=== PATIENT | female | born 1975 | race Caucasian/White ===

== ENCOUNTER 2017-08-25 12:50 | Emergency (ER) | payer BC ==
[2017-08-25 13:57] LABS: CHLORIDE,CL 106 mmol/L (98-107); SODIUM,NA 139 mmol/L (136-145)
[2017-08-25] MEDS ORDERED: Ketorolac 60 MG/2 ML SDV IM ONE (14:07)
[2017-08-25] MEDS ORDERED: Ondansetron 4 MG Tab.DIS PO ONE (14:07)
--- NOTE | 2017-08-25 16:32 | EDM.PDOC ---
ED HPI GENERAL MEDICAL PROBLEM - General Chief Complaint: Abdominal Pain Stated Complaint: ABD PAIN Time Seen by Provider: 08/25/17 13:10 Source of Information: Reports: Patient History Limitations: Reports: No Limitations - History of Present Illness INITIAL COMMENTS - FREE TEXT/NARRATIVE: History of present illness: []Patient started having right upper quadrant abdominal pain yesterday that is spreading throughout her whole abdomen. Patient's having nausea no vomiting but copious watery diarrhea. Patient states she's currently on her period is unsure if there is any blood in her stool. Review of systems: As per history of present illness and below otherwise all systems reviewed and negative. Past medical history: As per history of present illness and as reviewed below otherwise noncontributory. Surgical history: As per history of present illness and as reviewed below otherwise noncontributory. Social history: No reported history of drug or alcohol abuse. Family history: As per history of present illness and as reviewed below otherwise noncontributory. Physical exam: General: Well developed, well nourished in NAD HEENT: Atraumatic, normocephalic, pupils reactive, negative for conjunctival pallor or scleral icterus, mucous membranes moist, throat clear, neck supple, nontender, trachea midline. Lungs: Clear to auscultation, breath sounds equal bilaterally, chest nontender. Heart: S1S2, regular, negative for clicks, rubs, or JVD. Abdomen: Soft, nondistended, nontender. Negative for masses or hepatosplenomegaly. Negative for costovertebral tenderness. Pelvis: Stable nontender. Genitourinary: Deferred. Rectal: Deferred. Extremities: Atraumatic, negative for cords or calf pain. Neurovascular unremarkable. Neuro: Awake, alert, oriented. Cranial nerves II through XII unremarkable. Cerebellum unremarkable. Motor and sensory unremarkable throughout. Exam nonfocal. Diagnostics: []CBC normal,, urine negative, lipase normal, urine and negative ultrasound abdomen negative for gallstones Therapeutics: []Toradol for pain with improvement Impression: []Acute gastroenteritis Plan: []Zofran for nausea increase fluids follow-up with primary care return if symptoms worsen or change Definitive disposition and diagnosis as appropriate pending reevaluation and review of above. Abdominal Pain Score (Numeric/FACES): 5 - Related Data Allergies Allergy/AdvReac Type Severity Reaction Status Date / Time No Known Allergies Allergy Verified 08/25/17 13:09 Home Meds: Home Meds Lisdexamfetamine [Vyvanse] 08/25/17 [History] Olmesartan [Benicar] 08/25/17 [History] Ondansetron HCl [Zofran] 4 mg PO Q4HR #12 tablet 08/25/17 [Rx] traZODone 08/25/17 [History] Past Medical History Cardiovascular History: Reports: Hypertension Psychiatric History: Reports: Anxiety, Other (See Below) Other Psychiatric History: sleep disorder - Infectious Disease History Infectious Disease History: Reports: Chicken Pox Social & Family History - Family History Family Medical History: Noncontributory - Tobacco Use Smoking Status *Q: Current Every Day Smoker Years of Tobacco use: 4 Packs/Tins Daily: 1 - Recreational Drug Use Recreational Drug Use: No ED ROS GENERAL - Review of Systems Review Of Systems: See Below (See history of present illness) ED EXAM, GI/ABD - Physical Exam Exam: See Below (See history of present illness) Course - Vital Signs Last Recorded V/S: Last Vital Signs Temp 98.0 F 08/25/17 13:04 Pulse 87 08/25/17 15:43 Resp 18 08/25/17 15:43 BP 134/82 08/25/17 15:43 Pulse Ox 96 08/25/17 15:43 - Orders/Labs/Meds Orders: Active Orders 24 hr Category Date Time Status UA W/MICROSCOPIC [URIN] Stat Lab 08/25/17 13:16 Ordered Labs: Laboratory Tests 08/25/17 08/25/17 08/25/17 Range/Units 13:16 13:24 13:24 WBC 6.64 (4.0-11.0) K/uL RBC 4.41 (4.30-5.90) M/uL Hgb 14.2 (12.0-16.0) g/dL Hct 42.3 (36.0-46.0) % MCV 95.9 (80.0-98.0) fL MCH 32.2 H (27.0-32.0) pg MCHC 33.6 (31.0-37.0) g/dL RDW Std Deviation 51.0 (28.0-62.0) fl RDW Coeff of Jered 14 (11.0-15.0) % Plt Count 181 (150-400) K/uL MPV 9.50 (7.40-12.00) fL Neut % (Auto) 71.7 (48.0-80.0) % Lymph % (Auto) 22.7 (16.0-40.0) % [place] % (Auto) 3.5 (0.0-15.0) % Eos % (Auto) 2.1 (0.0-7.0) % Baso % (Auto) 0.0 (0.0-1.5) % Neut # (Auto) 4.8 (1.4-5.7) K/uL Lymph # (Auto) 1.5 (0.6-2.4) K/uL [place] # (Auto) 0.2 (0.0-0.8) K/uL Eos # (Auto) 0.1 (0.0-0.7) K/uL Baso # (Auto) 0.0 (0.0-0.1) K/uL Nucleated RBC % 0.0 /100WBC Nucleated RBCs # 0 K/uL Sodium 139 (136-145) mmol/L Potassium 3.7 (3.5-5.1) mmol/L Chloride 106 (98-107) mmol/L Carbon Dioxide 26.2 (21.0-32.0) mmol/L BUN 10 (7.0-18.0) mg/dL Creatinine 0.9 (0.6-1.0) mg/dL Est Cr Clr Drug Dosing 73.27 mL/min Estimated GFR (MDRD) > 60.0 ml/min Glucose 98 (74-106) mg/dL Calcium 8.8 (8.5-10.1) mg/dL Total Bilirubin 0.2 (0.2-1.0) mg/dL AST 14 L (15-37) IU/L ALT 17 (14-63) IU/L Alkaline Phosphatase 57 (46-116) U/L Total Protein 6.9 (6.4-8.2) g/dL Albumin 3.6 (3.4-5.0) g/dL Globulin 3.3 (2.0-3.5) g/dL Albumin/Globulin Ratio 1.1 L (1.3-2.8) Lipase 105 (73-393) U/L Urine Color YELLOW Urine Appearance CLEAR Urine pH 6.0 (5.0-8.0) Ur Specific [place] 1.015 (1.001-1.035) Urine Protein NEGATIVE (NEGATIVE) mg/dL Urine Glucose (UA) NEGATIVE (NEGATIVE) mg/dL Urine Ketones NEGATIVE (NEGATIVE) mg/dL Urine Occult Blood SMALL H (NEGATIVE) Urine Nitrite NEGATIVE (NEGATIVE) Urine Bilirubin NEGATIVE (NEGATIVE) Urine Urobilinogen 0.2 (<2.0) EU/dL Ur Leukocyte Esterase NEGATIVE (NEGATIVE) Urine RBC 0-2 (0-2/HPF) Urine WBC 0-1 (0-5/HPF) Ur Epithelial Cells FEW (NONE-FEW) Amorphous Sediment LIGHT (NEGATIVE) Urine Bacteria FEW (NEGATIVE) Meds: Medications Discontinued Medications Generic Name Dose Route Start Last Admin Trade Name Freq PRN Reason Stop Dose Admin Ketorolac Tromethamine 60 mg 08/25/17 14:07 08/25/17 14:13 Toradol IM 08/25/17 14:08 60 mg ONETIME ONE Administration Ondansetron HCl 4 mg 08/25/17 14:07 08/25/17 14:13 Zofran Odt PO 08/25/17 14:08 4 mg ONETIME ONE Administration Departure - Departure Time of Disposition: 16:42 Disposition: Home, Self-Care 01 Condition: Good Clinical Impression: Acute gastroenteritis - Discharge Information Prescriptions: Ondansetron HCl [Zofran] 4 mg PO Q4HR #12 tablet Referrals: Kiley Weston [employer]ER [Primary Care Provider] - Forms: ED Department Discharge Additional Instructions: The following information is given to patients seen in the emergency department who are being discharged to home. This information is to outline your options for follow-up care. We provide all patients seen in our emergency department with a follow-up referral. The need for follow-up, as well as the timing and circumstances, are variable depending upon the specifics of your emergency department visit. If you don't have a primary care physician on staff, we will provide you with a referral. We always advise you to contact your personal physician following an emergency department visit to inform them of the circumstance of the visit and for follow-up with them and/or the need for any referrals to a consulting specialist. The emergency department will also refer you to a specialist when appropriate. This referral assures that you have the opportunity for follow-up care with a specialist. All of these measure are taken in an effort to provide you with optimal care, which includes your follow-up. Under all circumstances we always encourage you to contact your private physician who remains a resource for coordinating your care. When calling for follow-up care, please make the office aware that this follow-up is from your recent emergency room visit. If for any reason you are refused follow-up, please contact the [facility] Emergency Department at and asked to speak to the emergency department charge nurse. - My Orders Last 24 Hours: My Active Orders 08/25/17 13:16 UA W/MICROSCOPIC [URIN] Stat - Assessment/Plan Last 24 Hours: My Active Orders 08/25/17 13:16 UA W/MICROSCOPIC [URIN] Stat
--- NOTE | 2017-08-25 16:33 | US ---
EXAMINATION: Right upper quadrant ultrasound HISTORY: Pain COMPARISON: None TECHNIQUE: Grayscale and color Doppler imaging obtained of the vertebral quadrant. FINDINGS: The visualized pancreas appears normal. The liver is normal in contour and echotexture with out a focal hepatic mass. The gallbladder wall thickness is normal. No pericholecystic fluid or shado wing gallstones. Common bile duct measures 3 mm. The right kidney measures at least 10.7 cm pole-to-p ole without evidence of hydronephrosis. IMPRESSION: Unremarkable right upper quadrant ultrasound.
== END 2017-08-25 16:48 | disposition home or self-care (01) ==
LOC: MW.ED 12:50
DX: K52.9 Noninfective gastroenteritis and colitis, unspecified (principal); I10 Essential (primary) hypertension; F17.210 Nicotine dependence, cigarettes, uncomplicated
CPT/HCPCS: 36415; 76705; 80053; 81001; 83690; 85025; 96372; 99284; A9270; J1885; 99283

== ENCOUNTER 2017-12-09 14:46 | Emergency (ER) | payer BC ==
[2017-12-09] MEDS ORDERED: Sodium Chloride 0.9% 2.5 ML Syringe FLUSH PRN (15:03)
[2017-12-09] MEDS ORDERED: Nitroglycerin 0.4 MG Tab.SL SL PRN (15:03)
[2017-12-09] MEDS ORDERED: Aspirin 81 MG Tab.Chew PO ONE (15:03)
[2017-12-09] MEDS ORDERED: Sodium Chloride 0.9% 10 ML Syringe FLUSH PRN (15:03)
--- NOTE | 2017-12-09 15:37 | EDM.PDOC ---
ED HPI GENERAL MEDICAL PROBLEM - General Chief Complaint: Chest Pain Stated Complaint: HEART ISSUES Time Seen by Provider: 12/09/17 14:57 Source of Information: Reports: Patient History Limitations: Reports: No Limitations - History of Present Illness INITIAL COMMENTS - FREE TEXT/NARRATIVE: History of present illness: []Patient's had 2 month history of chest pain that has been more on than off. Last night at 19:30 she developed another episode of 8/10 right anterior upper chest pain radiating to her right arm at times. She states she has some shortness of breath associated with it but denies any diaphoresis, syncope or dizziness. Patient is currently being worked up for this chest pain by Katheryn Weston NP and has a stress test scheduled next week. Patient is currently taking an H2 sha and an anti-anxiety medication. She is not on a baby aspirin or nitroglycerin. Patient has a family history of COPD, heart disease including A. fib. Patient is smoker and continues to smoke. Her pain is currently 8/10. Review of systems: As per history of present illness and below otherwise all systems reviewed and negative. Past medical history: As per history of present illness and as reviewed below otherwise noncontributory. Surgical history: As per history of present illness and as reviewed below otherwise noncontributory. Social history: No reported history of drug or alcohol abuse. Family history: As per history of present illness and as reviewed below otherwise noncontributory. Physical exam: General: Well developed, well nourished in NAD HEENT: Atraumatic, normocephalic, pupils reactive, negative for conjunctival pallor or scleral icterus, mucous membranes moist, throat clear, neck supple, nontender, trachea midline. Lungs: Clear to auscultation, breath sounds equal bilaterally, chest nontender. Heart: S1S2, regular, negative for clicks, rubs, or JVD. Abdomen: Soft, nondistended, nontender. Negative for masses or hepatosplenomegaly. Negative for costovertebral tenderness. Pelvis: Stable nontender. Genitourinary: Deferred. Rectal: Deferred. Extremities: Atraumatic, negative for cords or calf pain. Neurovascular unremarkable. Neuro: Awake, alert, oriented. Cranial nerves II through XII unremarkable. Cerebellum unremarkable. Motor and sensory unremarkable throughout. Exam nonfocal. Diagnostics: []CBC normal chemistry normal troponin negative chest x-ray negative EKG no skin changes. Therapeutics: []Aspirin and nitroglycerin given with alleviation of her chest pain completely Impression: []Chest pain Plan: []baby aspirin daily, nitroglycerin as directed follow-up with cardiology keep stress test appointment as scheduled. Return to ER if symptoms worsen or change Definitive disposition and diagnosis as appropriate pending reevaluation and review of above. Right Chest Pain Score (Numeric/FACES): 7 - Related Data Allergies Allergy/AdvReac Type Severity Reaction Status Date / Time No Known Allergies Allergy Verified 12/09/17 14:54 Home Meds: Home Meds Albuterol Sulfate [Proair Hfa] 1 - 2 puff INH Q4H PRN 12/09/17 [History] Nitroglycerin 0.4 mg SL ASDIRECTED PRN #1 bottle 12/09/17 [Rx] Olmesartan/Hydrochlorothiazide [Olmesartan-Hctz 40-12.5 mg Tab] 1 tab PO DAILY 12/09/17 [History] Omeprazole 20 mg PO DAILY 12/09/17 [History] Varenicline Tartrate [Chantix] 1 mg PO DAILY 12/09/17 [History] hydrOXYzine pamoate [Hydroxyzine Pamoate] 25 mg PO BID PRN 12/09/17 [History] Past Medical History Cardiovascular History: Reports: Hypertension Psychiatric History: Reports: Anxiety, Other (See Below) Other Psychiatric History: sleep disorder - Infectious Disease History Infectious Disease History: Reports: Chicken Pox Social & Family History - Family History Family Medical History: Noncontributory - Tobacco Use Smoking Status *Q: Current Every Day Smoker Years of Tobacco use: 20 Packs/Tins Daily: 1 - Recreational Drug Use Recreational Drug Use: No ED ROS GENERAL - Review of Systems Review Of Systems: ROS reveals no pertinent complaints other than HPI. ED EXAM, GENERAL - Physical Exam Exam: See Below (See history of present illness) Course - Vital Signs Last Recorded V/S: Last Vital Signs Temp 98.0 F 12/09/17 15:53 Pulse 77 12/09/17 15:53 Resp 20 12/09/17 15:53 BP 138/85 12/09/17 15:53 Pulse Ox 98 12/09/17 14:51 - Orders/Labs/Meds Orders: Active Orders 24 hr Category Date Time Status EKG Documentation Completion [RC] STAT Care 12/09/17 15:03 Active Chest 2V [CR] Stat Exams 12/09/17 15:03 Taken Nitroglycerin [Nitrostat] Med 12/09/17 15:03 Active 0.4 mg SL Q5M PRN Sodium Chloride 0.9% [Saline Flush] Med 12/09/17 15:03 Active 10 ml FLUSH ASDIRECTED PRN Sodium Chloride 0.9% [Saline Flush] Med 12/09/17 15:03 Active 2.5 ml FLUSH ASDIRECTED PRN Saline Lock Insert [OM.PC] Stat Oth 12/09/17 15:03 Ordered Medication Orders Nitroglycerin (Nitrostat) 0.4 mg SL Q5M PRN PRN Reason: Chest Pain Last Admin: 12/09/17 15:53 Dose: 0.4 mg Sodium Chloride (Saline Flush) 10 ml FLUSH ASDIRECTED PRN PRN Reason: Keep Vein Open Last Admin: 12/09/17 15:18 Dose: 10 ml Sodium Chloride (Saline Flush) 2.5 ml FLUSH ASDIRECTED PRN PRN Reason: Keep Vein Open Last Admin: 12/09/17 15:18 Dose: 2.5 ml Labs: Laboratory Tests 12/09/17 12/09/17 Range/Units 15:30 15:30 WBC 6.10 (4.0-11.0) K/uL RBC 4.30 (4.30-5.90) M/uL Hgb 14.1 (12.0-16.0) g/dL Hct 41.3 (36.0-46.0) % MCV 96.0 (80.0-98.0) fL MCH 32.8 H (27.0-32.0) pg MCHC 34.1 (31.0-37.0) g/dL RDW Std Deviation 51.6 (28.0-62.0) fl RDW Coeff of Jered 15 (11.0-15.0) % Plt Count 201 (150-400) K/uL MPV 9.50 (7.40-12.00) fL Neut % (Auto) 37.9 L (48.0-80.0) % Lymph % (Auto) 48.4 H (16.0-40.0) % [place] % (Auto) 6.7 (0.0-15.0) % Eos % (Auto) 6.7 (0.0-7.0) % Baso % (Auto) 0.3 (0.0-1.5) % Neut # (Auto) 2.3 (1.4-5.7) K/uL Lymph # (Auto) 3.0 H (0.6-2.4) K/uL [place] # (Auto) 0.4 (0.0-0.8) K/uL Eos # (Auto) 0.4 (0.0-0.7) K/uL Baso # (Auto) 0.0 (0.0-0.1) K/uL Nucleated RBC % 0.0 /100WBC Nucleated RBCs # 0 K/uL Sodium 140 (136-145) mmol/L Potassium 3.7 (3.5-5.1) mmol/L Chloride 106 (98-107) mmol/L Carbon Dioxide 25.9 (21.0-32.0) mmol/L BUN 13 (7.0-18.0) mg/dL Creatinine 1.0 (0.6-1.0) mg/dL Est Cr Clr Drug Dosing 65.95 mL/min Estimated GFR (MDRD) > 60.0 ml/min Glucose 89 (74-106) mg/dL Calcium 8.8 (8.5-10.1) mg/dL Total Bilirubin 0.2 (0.2-1.0) mg/dL AST 18 (15-37) IU/L ALT 16 (14-63) IU/L Alkaline Phosphatase 72 (46-116) U/L Troponin I < 0.050 (0.000-0.056) ng/mL Total Protein 7.3 (6.4-8.2) g/dL Albumin 3.6 (3.4-5.0) g/dL Globulin 3.7 H (2.0-3.5) g/dL Albumin/Globulin Ratio 1.0 L (1.3-2.8) Meds: Medications Generic Name Dose Route Start Last Admin Trade Name Freq PRN Reason Stop Dose Admin Nitroglycerin 0.4 mg 12/09/17 15:03 12/09/17 15:53 Nitrostat SL 0.4 mg Q5M PRN Administration Chest Pain Sodium Chloride 10 ml 12/09/17 15:03 12/09/17 15:18 Saline Flush FLUSH 10 ml ASDIRECTED PRN Administration Keep Vein Open Sodium Chloride 2.5 ml 12/09/17 15:03 12/09/17 15:18 Saline Flush FLUSH 2.5 ml ASDIRECTED PRN Administration Keep Vein Open Discontinued Medications Generic Name Dose Route Start Last Admin Trade Name Freq PRN Reason Stop Dose Admin Aspirin 324 mg 12/09/17 15:03 12/09/17 15:17 Aspirin PO 12/09/17 15:04 324 mg ONETIME ONE Administration Departure - Departure Time of Disposition: 16:31 Disposition: Home, Self-Care 01 Condition: Good Clinical Impression: Chest pain Qualifiers: Chest pain type: unspecified Qualified Code(s): R07.9 - Chest pain, unspecified Prescriptions: Nitroglycerin 0.4 mg SL ASDIRECTED PRN #1 bottle PRN Reason: Chest Pain Referrals: PCP,None [Primary Care Provider] - Prasanth Portillo MD [Physician] - (Next available) Forms: ED Department Discharge Additional Instructions: The following information is given to patients seen in the emergency department who are being discharged to home. This information is to outline your options for follow-up care. We provide all patients seen in our emergency department with a follow-up referral. The need for follow-up, as well as the timing and circumstances, are variable depending upon the specifics of your emergency department visit. If you don't have a primary care physician on staff, we will provide you with a referral. We always advise you to contact your personal physician following an emergency department visit to inform them of the circumstance of the visit and for follow-up with them and/or the need for any referrals to a consulting specialist. The emergency department will also refer you to a specialist when appropriate. This referral assures that you have the opportunity for follow-up care with a specialist. All of these measure are taken in an effort to provide you with optimal care, which includes your follow-up. Under all circumstances we always encourage you to contact your private physician who remains a resource for coordinating your care. When calling for follow-up care, please make the office aware that this follow-up is from your recent emergency room visit. If for any reason you are refused follow-up, please contact the [facility] Emergency Department at and asked to speak to the emergency department charge nurse. [facility] Dr[address] Portillo. [id number] [place] [id number] [phone] - My Orders Last 24 Hours: My Active Orders 12/09/17 15:03 EKG Documentation Completion [RC] STAT Chest 2V [CR] Stat Nitroglycerin [Nitrostat] 0.4 mg SL Q5M PRN Sodium Chloride 0.9% [Saline Flush] 10 ml FLUSH ASDIRECTED PRN Sodium Chloride 0.9% [Saline Flush] 2.5 ml FLUSH ASDIRECTED PRN Saline Lock Insert [OM.PC] Stat - Assessment/Plan Last 24 Hours: My Active Orders 12/09/17 15:03 EKG Documentation Completion [RC] STAT Chest 2V [CR] Stat Nitroglycerin [Nitrostat] 0.4 mg SL Q5M PRN Sodium Chloride 0.9% [Saline Flush] 10 ml FLUSH ASDIRECTED PRN Sodium Chloride 0.9% [Saline Flush] 2.5 ml FLUSH ASDIRECTED PRN Saline Lock Insert [OM.PC] Stat
[2017-12-09 16:02] LABS: CHLORIDE,CL 106 mmol/L (98-107); SODIUM,NA 140 mmol/L (136-145)
--- NOTE | 2017-12-10 09:14 | CR ---
EXAM DATE: 12/09/17 PATIENT'S AGE: 42 Patient: ABIOLA RAMIREZ Facility: [place], [place] Site . Site : [id number] Study: XRay Chest [id number]/[id number] 4:21:16 PM Ordering Physician: Boris Dave Final Report: INDICATION: chest pain, sob TECHNIQUE: Chest 2 views COMPARISON: None FINDINGS: Cardiovascular and mediastinum: Heart size and vasculature are normal in caliber and appearance. Mediastinum is within normal limits. Lungs and pleural spaces: Lungs are clear. No sign of infiltrate or mass. No sign of pleural effusion. No pneumothorax. Bones and soft tissues: Remote healed left mid clavicular fracture. IMPRESSION: No acute cardiopulmonary disease. Dictated by Raffy Felipe MD @ 12/09/2017 4:44:29 PM Dictated by: Raffy Felipe MD @ 12/09/2017 16:44:36 (Electronic Signature) Report Signed by Proxy. [facility] MED[facility] CENTERLadarius
== END 2017-12-09 16:50 | disposition home or self-care (01) ==
LOC: MW.ED 14:46
DX: R07.9 Chest pain, unspecified (principal); F17.210 Nicotine dependence, cigarettes, uncomplicated; I10 Essential (primary) hypertension; F41.9 Anxiety disorder, unspecified; Z79.899 Other long term (current) drug therapy
CPT/HCPCS: 36415; 71046; 80053; 84484; 85025; 93005; 99285; A9270

== ENCOUNTER 2018-06-22 08:50 | Emergency (ER) | payer OTHER ==
--- NOTE | 2018-06-22 09:38 | EDM.PDOC ---
ED HPI GENERAL MEDICAL PROBLEM - General Chief Complaint: General Stated Complaint: FELL AND HIT HEAD Time Seen by Provider: 06/22/18 09:35 - History of Present Illness INITIAL COMMENTS - FREE TEXT/NARRATIVE: HISTORY AND PHYSICAL: History of present illness: Patient is a 43-year-old white female presents status post fall last Thursday which she hit her head arm buttock and presents today for medical screening exam. Patient now lost consciousness she denies neck pain no chest or abdominal pain or trauma or other concern. Review of systems: As per history of present illness and below otherwise all systems reviewed and negative. Past medical history: As per history of present illness and as reviewed below otherwise noncontributory. Surgical history: As per history of present illness and as reviewed below otherwise noncontributory. Social history: No reported history of drug or alcohol abuse. Family history: As per history of present illness and as reviewed below otherwise noncontributory. Physical exam: HEENT: Atraumatic, normocephalic, pupils reactive, negative for conjunctival pallor or scleral icterus, mucous membranes moist, throat clear, neck supple, nontender, trachea midline. Lungs: Clear to auscultation, breath sounds equal bilaterally, chest nontender. Heart: S1S2, regular, negative for clicks, rubs, or JVD. Abdomen: Soft, nondistended, nontender. Negative for masses or hepatosplenomegaly. Negative for costovertebral tenderness. Pelvis: Stable nontender. Genitourinary: Deferred. Rectal: Deferred. Extremities: No gross deformity no bony tenderness no point tenderness ecchymosis noted over the lateral aspect of her left elbow?full range of motion neurovascular exam is unremarkable Neuro: Awake, alert, oriented. Cranial nerves II through XII unremarkable. Cerebellum unremarkable. Motor and sensory unremarkable throughout. Exam nonfocal. Diagnostics: Deferred Therapeutics: None Impression: #1 minor head injury #2 multiple contusions Definitive disposition and diagnosis as appropriate pending reevaluation and review of above. Headache Pain Score (Numeric/FACES): 9 - Related Data Allergies Allergy/AdvReac Type Severity Reaction Status Date / Time No Known Allergies Allergy Verified 06/22/18 09:04 Home Meds: Home Meds Olmesartan/Hydrochlorothiazide [Olmesartan-Hctz 40-12.5 mg Tab] 1 tab PO DAILY 12/09/17 [History] Lisdexamfetamine Dimesylate [Vyvanse] 60 mg PO DAILY 06/22/18 [History] traZODone HCl [Trazodone HCl] 100 mg PO BEDTIME PRN 06/22/18 [History] Past Medical History Cardiovascular History: Reports: Hypertension Psychiatric History: Reports: ADHD, Anxiety, Other (See Below) Other Psychiatric History: sleep disorder - Infectious Disease History Infectious Disease History: Reports: Chicken Pox - Past Surgical History Female Surgical History: Reports: Tubal Ligation Social & Family History - Family History Family Medical History: Noncontributory - Tobacco Use Smoking Status *Q: Current Every Day Smoker Years of Tobacco use: 5 Packs/Tins Daily: 1 - Recreational Drug Use Recreational Drug Use: No ED ROS GENERAL - Review of Systems Review Of Systems: ROS reveals no pertinent complaints other than HPI. ED EXAM, GENERAL - Physical Exam Exam: See Below (See dictation) Course - Vital Signs Last Recorded V/S: Last Vital Signs Temp 36.2 C 06/22/18 09:01 Pulse 98 06/22/18 09:01 Resp 16 06/22/18 09:01 BP 146/97 H 06/22/18 09:01 Pulse Ox 97 06/22/18 09:01 Departure - Departure Time of Disposition: 09:37 Disposition: Home, Self-Care 01 Condition: Good Clinical Impression: Head injury, Multiple contusions - Discharge Information Referrals: Kiley Weston NP [Primary Care Provider] - Additional Instructions: The following information is given to patients seen in the emergency department who are being discharged to home. This information is to outline your options for follow-up care. We provide all patients seen in our emergency department with a follow-up referral. The need for follow-up, as well as the timing and circumstances, are variable depending upon the specifics of your emergency department visit. If you don't have a primary care physician on staff, we will provide you with a referral. We always advise you to contact your personal physician following an emergency department visit to inform them of the circumstance of the visit and for follow-up with them and/or the need for any referrals to a consulting specialist. The emergency department will also refer you to a specialist when appropriate. This referral assures that you have the opportunity for followup care with a specialist. All of these measure are taken in an effort to provide you with optimal care, which includes your followup. Under all circumstances we always encourage you to contact your private physician who remains a resource for coordinating your care. When calling for followup care, please make the office aware that this follow-up is from your recent emergency room visit. If for any reason you are refused follow-up, please contact the [facility] emergency department at and asked to speak to the emergency department charge nurse. [facility] [address] [place] [id number] Motrin/Tylenol as directed off work 48 hours follow-up private medical doctor in our clinic as needed as discussed and return as needed as discussed
== END 2018-06-22 09:45 | disposition home or self-care (01) ==
LOC: MW.ED 08:50
DX: S09.90XA Unspecified injury of head, initial encounter (principal); S50.02XA Contusion of left elbow, initial encounter; I10 Essential (primary) hypertension; F17.210 Nicotine dependence, cigarettes, uncomplicated; Z79.899 Other long term (current) drug therapy; W10.9XXA Fall (on) (from) unspecified stairs and steps, initial encounter
CPT/HCPCS: 99282; 99283

== ENCOUNTER 2018-09-23 15:13 | Emergency (ER) | payer OTHER ==
[2018-09-23] MEDS ORDERED: Sodium Chloride 0.9% 1,000 ML IV ONE (15:52)
[2018-09-23] MEDS ORDERED: diphenhydrAMINE 50 MG/ML SDV IVPUSH ONE (15:52)
[2018-09-23] MEDS ORDERED: Ondansetron 4 MG/2 ML SDV IVPUSH ONE (15:52)
[2018-09-23] MEDS ORDERED: Ketorolac 30 MG/ML SDV IVPUSH ONE (15:52)
--- NOTE | 2018-09-23 15:57 | EDM.PDOC ---
ED HPI GENERAL MEDICAL PROBLEM - General Chief Complaint: Headache Stated Complaint: MIGRANE Time Seen by Provider: 09/23/18 15:19 Source of Information: Reports: Patient History Limitations: Reports: No Limitations - History of Present Illness INITIAL COMMENTS - FREE TEXT/NARRATIVE: HISTORY AND PHYSICAL: History of present illness: Patient is a 42-year-old female presents to the ED today with concern for migraine headache off and on for one month. Patient states she does have a history of migraines and even had a recent MRI done approximately 2 years ago for evaluation of her migraines. Patient states she does not take any home migraine medications but has tried [id number] Tylenol and ibuprofen without relief the symptoms. Patient states over the past couple days she started noticing light sensitivity, nausea without vomiting. Patient states her headache today is unchanged from prior migraines in the past. Patient denies fever, chills, chest pain, shortness of breath, or cough. Denies neck stiff ness, change in vision, syncope, or near syncope. Denies vomiting, abdominal pain, diarrhea, constipation, or dysuria. Has not noted any blood in urine or stool. Patient has been eating and drinking appropriately. Review of systems: As per history of present illness and below otherwise all systems reviewed and negative. Past medical history: As per history of present illness and as reviewed below otherwise noncontributory. Surgical history: As per history of present illness and as reviewed below otherwise noncontributory. Social history: See social history for further information Family history: As per history of present illness and as reviewed below otherwise noncontributory. Physical exam: General: Patient is alert, oriented, and in no acute distress. Patient sitting comfortably on exam table. HEENT: Atraumatic, normocephalic, pupils equal and reactive bilaterally, negative for conjunctival pallor or scleral icterus, mucous membranes moist, TMs normal bilaterally, throat clear, neck supple, nontender, trachea midline. No drooling or trismus noted. No meningeal signs. No hot potato voice noted. Lungs: Clear to auscultation, breath sounds equal bilaterally, chest nontender. Heart: S1S2, regular rate and rhythm without overt murmur Abdomen: Soft, nondistended, nontender. Negative for masses or hepatosplenomegaly. Negative for costovertebral tenderness. Pelvis: Stable nontender. Genitourinary: Deferred. Rectal: Deferred. Skin: Intact, warm, dry. No lesions or rashes noted. Extremities: Atraumatic, negative for cords or calf pain. Neurovascular unremarkable. Neuro: Awake, alert, oriented. Cranial nerves II through XII unremarkable. Cerebellum unremarkable. Motor and sensory unremarkable throughout. Exam nonfocal. Notes: Discussed the importance for follow-up with a primary care provider. Voices understanding and is agreeable to plan of care. Denies any further questions or concerns at this time. Diagnostics: None Therapeutics: Saline, Toradol, Zofran, Benadryl Prescription: None Impression: Headache Plan: 1. You can alternate ibuprofen and Tylenol as directed for pain and discomfort. Encourage small but frequent sips of fluid to prevent dehydration. 2. Follow-up with her primary care provider as discussed. 3. Return to the ED as needed and as discussed. Definitive disposition and diagnosis as appropriate pending reevaluation and review of above. headache Pain Score (Numeric/FACES): 9 - Related Data Allergies Allergy/AdvReac Type Severity Reaction Status Date / Time No Known Allergies Allergy Verified 09/23/18 15:21 Home Meds: Home Meds Olmesartan/Hydrochlorothiazide [Olmesartan-Hctz 40-12.5 mg Tab] 1 tab PO DAILY 12/09/17 [History] Lisdexamfetamine Dimesylate [Vyvanse] 60 mg PO DAILY 06/22/18 [History] traZODone HCl [Trazodone HCl] 100 mg PO BEDTIME PRN 06/22/18 [History] Venlafaxine [Effexor XR] 150 mg PO BID 09/23/18 [History] hydrOXYzine pamoate [Hydroxyzine Pamoate] 1 tab PO BID PRN 09/23/18 [History] Past Medical History Cardiovascular History: Reports: Hypertension 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: Neurological History: Reports: Headaches, Chronic Psychiatric History: Reports: ADHD, Anxiety, Other (See Below) Other Psychiatric History: sleep disorder Dermatologic History: Reports: Other (See Below) Other Dermatologic History: Atypical Melanocytic Proliferation - Infectious Disease History Infectious Disease History: Reports: Chicken Pox - Past Surgical History HEENT Surgical History: Reports: Adenoidectomy, Tonsillectomy, Other (See Below) Other HEENT Surgeries/Procedures: Jaw REplaced, Osteomyelitis Female Surgical History: Reports: Tubal Ligation Social & Family History - Family History Family Medical History: Noncontributory Other Oncologic Family History: Mom had Brain Tumors - Tobacco Use Smoking Status *Q: Current Every Day Smoker Years of Tobacco use: 4 Packs/Tins Daily: 1 - Recreational Drug Use Recreational Drug Use: No ED ROS GENERAL - Review of Systems Review Of Systems: ROS reveals no pertinent complaints other than HPI. - Physical Exam Exam: See Below (See dictation) Course - Vital Signs Last Recorded V/S: Last Vital Signs Temp 36.6 C 09/23/18 15:18 Pulse 101 H 09/23/18 15:18 Resp 16 09/23/18 15:18 BP 148/86 H 09/23/18 15:18 Pulse Ox 98 09/23/18 15:18 - Orders/Labs/Meds Orders: Active Orders 24 hr Category Date Time Status Ketorolac [Toradol] Med 09/23/18 15:52 Once 30 mg IVPUSH ONETIME ONE Ondansetron [Zofran] Med 09/23/18 15:52 Once 4 mg IVPUSH ONETIME ONE Sodium Chloride 0.9% [Normal Saline] 1,000 ml Med 09/23/18 15:52 Ordered IV STAT diphenhydrAMINE [Benadryl] Med 09/23/18 15:52 Once 50 mg IVPUSH ONETIME ONE Medication Orders Diphenhydramine HCl (Benadryl) 50 mg IVPUSH ONETIME ONE Stop: 09/23/18 15:53 Sodium Chloride (Normal Saline) 1,000 mls @ 999 mls/hr IV STAT ONE Stop: 09/23/18 16:52 Ketorolac Tromethamine (Toradol) 30 mg IVPUSH ONETIME ONE Stop: 09/23/18 15:53 Ondansetron HCl (Zofran) 4 mg IVPUSH ONETIME ONE Stop: 09/23/18 15:53 Meds: Medications Generic Name Dose Route Start Last Admin Trade Name Freq PRN Reason Stop Dose Admin Diphenhydramine HCl 50 mg 09/23/18 15:52 Benadryl IVPUSH 09/23/18 15:53 ONETIME ONE Sodium Chloride 1,000 mls @ 999 mls/hr 09/23/18 15:52 Normal Saline IV 09/23/18 16:52 STAT ONE Ketorolac Tromethamine 30 mg 09/23/18 15:52 Toradol IVPUSH 09/23/18 15:53 ONETIME ONE Ondansetron HCl 4 mg 09/23/18 15:52 Zofran IVPUSH 09/23/18 15:53 ONETIME ONE Departure - Departure Time of Disposition: 15:57 Disposition: Home, Self-Care 01 Clinical Impression: Headache Qualifiers: Headache type: unspecified Headache chronicity pattern: unspecified pattern Intractability: not intractable Qualified Code(s): R51 - Headache - Discharge Information Referrals: Kiley Weston NP [Primary Care Provider] - Additional Instructions: The following information is given to patients seen in the emergency department who are being discharged to home. This information is to outline your options for follow-up care. We provide all patients seen in our emergency department with a follow-up referral. The need for follow-up, as well as the timing and circumstances, are variable depending upon the specifics of your emergency department visit. If you don't have a primary care physician on staff, we will provide you with a referral. We always advise you to contact your personal physician following an emergency department visit to inform them of the circumstance of the visit and for follow-up with them and/or the need for any referrals to a consulting specialist. The emergency department will also refer you to a specialist when appropriate. This referral assures that you have the opportunity for follow-up care with a specialist. All of these measure are taken in an effort to provide you with optimal care, which includes your follow-up. Under all circumstances we always encourage you to contact your private physician who remains a resource for coordinating your care. When calling for follow-up care, please make the office aware that this follow-up is from your recent emergency room visit. If for any reason you are refused follow-up, please contact the Emergency Department at and asked to speak to the emergency department charge nurse. [facility] [address] [place] [address] [id number] [address] [id number] 1. You can alternate ibuprofen and Tylenol as directed for pain and discomfort. Encourage small but frequent sips of fluid to prevent dehydration. 2. Follow-up with her primary care provider as discussed. 3. Return to the ED as needed and as discussed. - My Orders Last 24 Hours: My Active Orders 09/23/18 15:52 Ketorolac [Toradol] 30 mg IVPUSH ONETIME ONE Ondansetron [Zofran] 4 mg IVPUSH ONETIME ONE Sodium Chloride 0.9% [Normal Saline] 1,000 ml IV STAT diphenhydrAMINE [Benadryl] 50 mg IVPUSH ONETIME ONE - Assessment/Plan Last 24 Hours: My Active Orders 09/23/18 15:52 Ketorolac [Toradol] 30 mg IVPUSH ONETIME ONE Ondansetron [Zofran] 4 mg IVPUSH ONETIME ONE Sodium Chloride 0.9% [Normal Saline] 1,000 ml IV STAT diphenhydrAMINE [Benadryl] 50 mg IVPUSH ONETIME ONE
== END 2018-09-23 17:26 | disposition home or self-care (01) ==
LOC: MW.ED 15:13
DX: R51 Headache (principal); F41.9 Anxiety disorder, unspecified; I10 Essential (primary) hypertension; F17.210 Nicotine dependence, cigarettes, uncomplicated
CPT/HCPCS: 96361; 96374; 96375; 99283; J1200; J1885; J2405; J7040

== ENCOUNTER 2020-07-21 20:51 | Emergency (ER) | payer OTHER ==
[2020-07-21] MEDS ORDERED: Ondansetron 4 MG Tab.DIS PO ONE (21:47)
[2020-07-21] MEDS ORDERED: Alum Hydrox/Mag Hydrox/Simeth 15 ML, Lidocaine 2% 5 ML PO ONE ×2 (21:48)
[2020-07-21] MEDS ORDERED: Dextrose 5%-0.9% NaCl 1,000 ML IV SCH (22:00)
[2020-07-21] MEDS ORDERED: Dextrose 5%-0.9% NaCl 1,000 ML IV STA (22:11)
[2020-07-21 22:30] LABS: CARBON DIOXIDE,CO2 31.4 mmol/L (21.0-32.0); POTASSIUM,K 3.8 mmol/L (3.5-5.1)
--- NOTE | 2020-07-21 22:58 | EDM.PDOC ---
ED HPI GENERAL MEDICAL PROBLEM - General Chief Complaint: Gastrointestinal Problem Stated Complaint: VOMITING Time Seen by Provider: 07/21/20 21:18 - History of Present Illness INITIAL COMMENTS - FREE TEXT/NARRATIVE: CHIEF COMPLAINT(S): Vomiting HISTORY OF PRESENT ILLNESS: This is a 45-year-old woman with a past medical history of recent left knee MPFL reconstruction approximately 5 days ago who comes to the emergency department with a chief complaint of vomiting. The patient states that she was discharged 5 days ago and was discharged with [place]. She states that she was doing fine however her pain had increased yesterday so she called and they changed her to oxycodone. She states that an hour prior to taking the Susana she started to develop some vomiting which was nonbloody on nonbilious. She states that the pain in her leg has improved and denies any fevers or chills. She states that she tried to take Pepto-Bismol, Imitrex, tried to eat crackers, toast and water but threw it all up. She states that she has not been able to tolerate any medications or fluids by mouth. She states that she does have a mild headache. She describes the headache as throbbing located anteriorly in a bandlike distribution rated 2-3 out of 10 without any numbness, tingling, weakness. There is no blurry vision or loss of vision. She denies any other symptoms. REVIEW OF SYSTEMS: Constitutional: Denies fever, chills. Eyes: Denies eye pain Ears, Nose, Mouth, & Throat: Denies earache Cardiovascular: Denies chest pain Respiratory: Denies shortness of breath Gastrointestinal: Positive for nausea and vomiting. Denies diarrhea, hematochezia, abdominal pain, hematemesis, bilious emesis Genitourinary: Denies hematuria, dysuria Skin: Positive for left knee postsurgical wound MSK: Denies joint pain Neurological: Positive for headache. Denies blurred vision, loss of consciousness, numbness, tingling, weakness Psychiatric: Positive for anxiety PAST MEDICAL HISTORY: As per history of present illness and as reviewed below otherwise noncontributory. SURGICAL HISTORY: As per history of present illness and as reviewed below otherwise noncontributory. SOCIAL HISTORY: As per history of present illness and as reviewed below otherwise noncontributory. FAMILY HISTORY: As per history of present illness and as reviewed below otherwise noncontributory. EXAMINATION OF ORGAN SYSTEMS/BODY AREAS: Constitutional: Blood pressure is 157/89, heart rate 90, respiratory rate 18 with an oxygen saturation 95% on room air. Temperature 36.3 General: Overall well-appearing woman who is in no acute distress. Psychiatric: Appropriate mood and affect. Eyes: No scleral icterus or conjunctival erythema pupils are equal round reactive to light. Extraocular movements intact. ENMT: Moist mucous membranes. No pharyngeal erythema Cardiovascular: Regular, rate, and rhythm. No gallops, murmurs, or rubs. Bilateral upper extremity pulses symmetric and intact. No peripheral edema. No JVD. Respiratory: Lungs clear to auscultation bilaterally. No wheezes, rales, or rhonchi. Gastrointestinal: Soft, non-tender, non-distended. Normoactive bowel sounds Genitourinary: No suprapubic tenderness Musculoskeletal: Decreased range of motion of the left knee secondary to recent surgery. Mild swelling of the left knee. Skin: There is no redness in the incision wound for the surgery appears clean, dry and intact. No purulent drainage. Neurological: Alert, GCS 15 strength and sensation grossly intact in upper and lower extremities bilaterally. MEDICAL DECISION MAKING AND COURSE IN THE ED WITH INTERPRETATION/REVIEW OF DIAGNOSTIC STUDIES: This is a 45-year-old woman with a recent left knee surgery who comes to the emergency department with vomiting with inability to tolerate p.o. and headache. At this time there is no abnormality on examination however we will obtain screening labs including CBC, CMP and hCG. There could be a component of reflux disease given the recent surgery therefore we will provide the patient with a GI cocktail. We will provide the patient with D5 LR and provide the patient with Zofran. We will reevaluate the patient for symptomatic improvement. Laboratory: CBC is unremarkable. CMP is unremarkable. After period of observation the patient stated that she felt much better. She was able to tolerate p.o. here with crackers and soda. I did discuss with her at this time I did provide her with nausea medication to be used as needed and that there could be a contributing reflux disease as the cause of her symptoms. I encouraged her to use famotidine [id number] and Maalox as needed. She is to follow-up with her surgeon as needed. She is to return for any new or worsening symptoms. She was amenable discharge at this time and had no further questions. DISPOSITION: The patient was discharged home in stable condition. The patient will follow up with her surgeon at her scheduled appointment CONDITION: Fair PROCEDURES: None FINAL IMPRESSION(S)/DIAGNOSES: 1. Acute vomiting, unknown etiology Sony Huffman M.D. Left knee Pain Score (Numeric/FACES): 4 - Related Data Allergies Allergy/AdvReac Type Severity Reaction Status Date / Time No Known Allergies Allergy Verified 07/21/20 21:13 Home Meds: Home Meds Olmesartan/Hydrochlorothiazide [Olmesartan-Hctz 40-12.5 mg Tab] 1 tab PO DAILY 12/09/17 [History] Lisdexamfetamine Dimesylate [Vyvanse] 60 mg PO DAILY 06/22/18 [History] traZODone HCl [Trazodone HCl] 100 mg PO BEDTIME PRN 06/22/18 [History] Venlafaxine [Effexor XR] 150 mg PO BID 09/23/18 [History] hydrOXYzine pamoate [Hydroxyzine Pamoate] 1 tab PO BID PRN 09/23/18 [History] oxyCODONE HCl/Acetaminophen [Oxycodone-Acetaminophen 10-300] 07/21/20 [History] Past Medical History Cardiovascular History: Reports: Hypertension [employer] History: Reports: Musculoskeletal History: Reports: Other (See Below) Other Musculoskeletal History: R ACL Tear. L dislocated patella Neurological History: Reports: Headaches, Chronic Psychiatric History: Reports: ADHD, Anxiety, Other (See Below) Other Psychiatric History: sleep disorder Dermatologic History: Reports: Other (See Below) Other Dermatologic History: Atypical Melanocytic Proliferation - Infectious Disease History Infectious Disease History: Reports: Chicken Pox - Past Surgical History HEENT Surgical History: Reports: Adenoidectomy, Tonsillectomy, Other (See Below) Other HEENT Surgeries/Procedures: Jaw REplaced, Osteomyelitis Female Surgical History: Reports: Tubal Ligation Social & Family History - Family History Family Medical History: No Pertinent Family History Other Oncologic Family History: Mom had Brain Tumors - Tobacco Use Tobacco Use Status *Q: Current Every Day Tobacco User Years of Tobacco use: 20 Packs/Tins Daily: 1 - Caffeine Use Caffeine Use: Reports: Coffee, Energy Drinks, Soda - Recreational Drug Use Recreational Drug Use: No ED ROS GENERAL - Review of Systems Review Of Systems: See Below ED EXAM, GENERAL - Physical Exam Exam: See Below Course - Vital Signs Last Recorded V/S: Last Vital Signs Temp 36.6 C 07/21/20 23:13 Pulse 75 07/21/20 23:13 Resp 18 07/21/20 23:13 BP 143/83 H 07/21/20 23:13 Pulse Ox 97 07/21/20 23:13 - Orders/Labs/Meds Labs: Laboratory Tests 07/21/20 07/21/20 Range/Units 22:00 22:00 WBC 8.19 (4.0-11.0) K/uL RBC 4.63 (4.30-5.90) M/uL Hgb 15.6 (12.0-16.0) g/dL Hct 45.8 (36.0-46.0) % MCV 98.9 H (80.0-98.0) fL MCH 33.7 H (27.0-32.0) pg MCHC 34.1 (31.0-37.0) g/dL RDW Std Deviation 48.5 (28.0-62.0) fl RDW Coeff of Jered 13 (11.0-15.0) % Plt Count 179 (150-400) K/uL MPV 10.10 (7.40-12.00) fL Neut % (Auto) 65.0 (48.0-80.0) % Lymph % (Auto) 28.7 (16.0-40.0) % Brewster % (Auto) 4.9 (0.0-15.0) % Eos % (Auto) 1.3 (0.0-7.0) % Baso % (Auto) 0.1 (0.0-1.5) % Neut # (Auto) 5.3 (1.4-5.7) K/uL Lymph # (Auto) 2.4 (0.6-2.4) K/uL Brewster # (Auto) 0.4 (0.0-0.8) K/uL Eos # (Auto) 0.1 (0.0-0.7) K/uL Baso # (Auto) 0.0 (0.0-0.1) K/uL Nucleated RBC % 0.0 /100WBC Nucleated RBCs # 0 K/uL Sodium 144 (136-145) mmol/L Potassium 3.8 (3.5-5.1) mmol/L Chloride 104 (98-107) mmol/L Carbon Dioxide 31.4 (21.0-32.0) mmol/L BUN 11 (7.0-18.0) mg/dL Creatinine 1.2 H (0.6-1.0) mg/dL Est Cr Clr Drug Dosing 53.27 mL/min Estimated GFR (MDRD) 48.6 ml/min Glucose 99 (74-106) mg/dL Calcium 9.3 (8.5-10.1) mg/dL Total Bilirubin 0.4 (0.2-1.0) mg/dL AST 20 (15-37) IU/L ALT 25 (14-63) IU/L Alkaline Phosphatase 56 (46-116) U/L Total Protein 7.5 (6.4-8.2) g/dL Albumin 3.8 (3.4-5.0) g/dL Globulin 3.7 (2.6-4.0) g/dL Albumin/Globulin Ratio 1.0 (0.9-1.6) Meds: Medications Discontinued Medications Generic Name Dose Route Start Last Admin Trade Name Freq PRN Reason Stop Dose Admin Al Hydroxide/Mg Hydroxide 15 0 ml 07/21/20 21:48 07/21/20 22:06 ml/ Lidocaine HCl 5 ml PO 07/21/20 21:49 20 each ONETIME ONE Administration Dextrose/Sodium Chloride 1,000 mls @ 999 mls/hr 07/21/20 22:00 Dextrose 5%-Normal Saline IV ASDIRECTED [facility] Dextrose/Sodium Chloride 1,000 mls @ 999 mls/hr 07/21/20 22:11 07/21/20 22:17 Dextrose 5%-Normal Saline IV 07/21/20 23:11 999 mls/hr NOW STA Administration Ondansetron HCl 4 mg 07/21/20 21:47 07/21/20 22:06 Zofran Odt PO 07/21/20 21:48 4 mg ONETIME ONE Administration Departure - Departure Time of Disposition: 22:58 Disposition: Home, Self-Care 01 Condition: Fair Clinical Impression: Vomiting - Discharge Information *PRESCRIPTION DRUG MONITORING PROGRAM REVIEWED*: No *COPY OF PRESCRIPTION DRUG MONITORING REPORT IN PATIENT BENNY: No Instructions: Nausea and Vomiting, Adult, [id number] Referrals: Kiley Weston [employer] [Primary Care Provider] - Forms: ED Department Discharge Additional Instructions: You evaluate today on an emergent basis. At this time it is uncertain as to what is causing your nausea and vomiting however your lab work was normal. Your vitals were also normal. I did provide you with a prescription for Zofran 4 mg they can be used as needed for nausea. Sometimes postoperatively patients can develop reflux therefore I do recommend using famotidine 20 mg once a day. In addition you can use [id number] Maalox as needed for symptomatic relief. If you have any new or worsening symptoms please return to the emergency department. Please follow-up with your primary care physician and your surgeon at your scheduled appointment. [facility] [address] [place], [place] [id number] [place] [address] The patient is informed of any results of their evaluation and diagnostic workup and all questions are answered. They are given discharge instructions and return precautions. The patient is stable for discharge. The patient states they understand and agree with the plan and that they will return if their symptoms get worse or if they have any new concerns. The following information is given to patients seen in the emergency department who are being discharged to home. This information is to outline your options for follow-up care. We provide all patients seen in our emergency department with a follow-up referral. The need for follow-up, as well as the timing and circumstances, are variable depending upon the specifics of your emergency department visit. If you don't have a primary care physician on staff, we will provide you with a referral. We always advise you to contact your personal physician following an emergency department visit to inform them of the circumstance of the visit and for follow-up with them and/or the need for any referrals to a consulting specialist. The emergency department will also refer you to a specialist when appropriate. This referral assures that you have the opportunity for follow-up care with a specialist. All of these measure are taken in an effort to provide you with optimal care, which includes your follow-up. Under all circumstances we always encourage you to contact your private physician who remains a resource for coordinating your care. When calling for follow-up care, please make the office aware that this follow-up is from your recent emergency room visit. If for any reason you are refused follow-up, please contact the [facility] Emergency Department at and asked to speak to the emergency department charge nurse. Sepsis Event Note (ED) - Evaluation Sepsis Screening Result: No Definite Risk
== END 2020-07-21 23:15 | disposition home or self-care (01) ==
LOC: MW.ED 20:51
DX: R11.2 Nausea with vomiting, unspecified (principal); I10 Essential (primary) hypertension; Z79.899 Other long term (current) drug therapy; Z72.0 Tobacco use
CPT/HCPCS: 36415; 80053; 85025; 99284; A9270; J7042; 99283